=== PATIENT | male | born 1970 | race Caucasian/White ===

== ENCOUNTER → 2020-03-26 | Outpatient (CLI) | payer OTHER ==
[~2020-03-26] MED LIST: ALLO300T PO; ALPR2TAB5 PO; AMLO-150 PO; BUPIVACAINE/PF 0.5% ONE; EPINEPHRINE 1 MG/ML, 1ML ONE; IBUP-1223 PO; LOVA40TA2 PO; OMEP40CA42 PO; ZOLP10TA PO
== END | disposition home or self-care (01) ==
LOC: STAR 09:41
PROVIDERS: ATTEND Thoracic Surgery (Cardiothoracic Vascular Surgery)
DX: Z01.812 Encounter for preprocedural laboratory examination (principal); Z20.828 Contact with and (suspected) exposure to other viral communicable diseases
CPT/HCPCS: 36415; 87635

== ENCOUNTER 2020-03-31 07:02 | Day surgery (SDC) | payer OTHER ==
[~2020-03-31] VITALS: Ht 177.8 cm; Wt 91.9 kg
[~2020-03-31 07:02] MED LIST changes: -BUPIVACAINE/PF 0.5% ONE; -EPINEPHRINE 1 MG/ML, 1ML ONE
[2020-03-31] MEDS ORDERED: CHLORHEXIDINE 15 ML UDC MM ONE (08:00)
[2020-03-31] MEDS ORDERED: LIDOCAINE-MPF 1%, 2ML INFIL ONE (08:00)
[2020-03-31] MEDS ORDERED: LACTATED RINGERS 1,000 ML IV SCH ×2 (08:00→11:00)
[2020-03-31] MEDS ORDERED: MIDAZOLAM 1 MG/ML, 2ML ONE (09:19)
[2020-03-31] MEDS ORDERED: FENTANYL PF 250 MCG/5ML ONE (09:19)
[2020-03-31] MEDS ORDERED: CEFAZOLIN 1,000 MG ONE (09:31)
[2020-03-31] MEDS ORDERED: DEXAMETHASONE 4 MG/ML, 1ML ONE (09:31)
[2020-03-31] MEDS ORDERED: ONDANSETRON 2MG/ML, 2ML ONE (09:31)
[2020-03-31] MEDS ORDERED: PROPOFOL 10 MG/ML, 20ML ONE (09:31)
[2020-03-31] MEDS ORDERED: ROCURONIUM 10MG/ML,5ML ONE (09:31)
[2020-03-31] MEDS ORDERED: LIDOCAINE-MPF 1%, 2ML ONE (09:31)
[2020-03-31] MEDS ORDERED: BUPIVACAINE/PF-EPI 0.5% 1:200K INFIL ONE (09:53)
[2020-03-31] MEDS ORDERED: SUGAMMADEX 200 MG/2 ML IVPush ONE (10:22)
[2020-03-31] MEDS ORDERED: FENTANYL PF 100 MCG/2ML ONE (10:32)
[2020-03-31] MEDS ORDERED: OXYcodone 5 MG/5 ML ORAL.SOL UDC ONE (10:32)
[2020-03-31] MEDS ORDERED: HYDROmorphone 1 MG/ML, 1ML INJ ONE (10:32)
[2020-03-31] MEDS: HYDROmorphone 1 MG/ML, 1ML INJ IVPush PRN ×2 (10:35→11:01)
[2020-03-31] MEDS: FENTANYL PF 100 MCG/2ML IV PRN ×2 (10:41→10:53)
[2020-03-31] MEDS ORDERED: KETOROLAC 30 MG/1 ML ONE (10:58)
[2020-03-31] MEDS ORDERED: ONDANSETRON 2MG/ML, 2ML IVPush PRN ×2 (11:00)
[2020-03-31] MEDS ORDERED: HYDROcodone/APAP 7.5-325MG/15ML UDC PO PRN ×2 (11:00)
[2020-03-31] MEDS ORDERED: KETOROLAC 30 MG/1 ML IVPush PRN ×2 (11:00)
[2020-03-31] MEDS ORDERED: MEPERIDINE/PF 25MG/0.5ML IVPush PRN (11:00)
[2020-03-31] MEDS ORDERED: HYDROcodone/APAP 5/325 TABLET PO PRN (11:00)
[2020-03-31] MEDS ORDERED: OXYcodone 5 MG/5 ML ORAL.SOL UDC PO PRN (11:00)
[2020-03-31] MEDS ORDERED: PROMETHAZINE 25 MG/ML, 1ML IVPush PRN (11:00)
[2020-03-31] MEDS ORDERED: morphine SULFATE 10 MG/ML, 1ML IVPush PRN (11:00)
[2020-03-31] MEDS ORDERED: METHOCARBAMOL 1,000 MG in DEXTROSE 5% 100 ML IV ONE (11:00)
== END 2020-03-31 12:40 | disposition home or self-care (01) ==
LOC: OUT 07:02
PROVIDERS: ATTEND Thoracic Surgery (Cardiothoracic Vascular Surgery)
DX: K21.9 Gastro-esophageal reflux disease without esophagitis (principal); F41.9 Anxiety disorder, unspecified; I10 Essential (primary) hypertension; G47.00 Insomnia, unspecified; E78.00 Pure hypercholesterolemia, unspecified; F12.90 Cannabis use, unspecified, uncomplicated; Z72.0 Tobacco use; Z90.49 Acquired absence of other specified parts of digestive tract; Z79.899 Other long term (current) drug therapy; Z98.890 Other specified postprocedural states; Z72.89 Other problems related to lifestyle; Z82.49 Family history of ischemic heart disease and other diseases of the circulatory system
CPT/HCPCS: 43280; J0171; J0690; J1100; J1170; J2250; J2405; J2704; J3010; J7120